=== PATIENT | male | born 1955 ===

== ENCOUNTER 2024-01-27 08:15 | Inpatient (IN) | payer OTHER ==
[2024-01-27] MEDS ORDERED: METFORMIN (11:20)
[2024-01-27] MEDS ORDERED: ATORVASTATIN (11:21)
[2024-02-03] MEDS ORDERED: TRANEXAMIC ACID 100MG/1ML (1000MG) AMPUL IV ONE (20:34)
[2024-02-03] MEDS ORDERED: KETOROLAC TROMETHAMINE 60 MG VIAL IM ONE ×2 (20:48→23:30)
[2024-02-03] MEDS ORDERED: BUPIVACAINE HCL/MPF 0.5% 30ML VIAL ONE (20:48)
[2024-02-03] MEDS ORDERED: CEFAZOLIN SODIUM 1,000 MG VIAL ONE (20:51)
[2024-02-03] MEDS ORDERED: LIDOCAINE HCL 1%/EPINEPHRINE 20ML VIAL IJ ONE ×2 (20:51→23:30)
[2024-02-03] MEDS ORDERED: VANCOMYCIN HCL 1,000 MG VIAL ONE (20:52)
[2024-02-03] MEDS ORDERED: POVIDONE-IODINE 118 ML BOTT TOP ONE ×2 (21:50→23:30)
[2024-02-03] MEDS ORDERED: MORPHINE SULFATE 4 MG/ML CARTRIDGE IV PRN (23:00)
[2024-02-03] MEDS ORDERED: OxyCODONE HCL 5 MG TABLET (ROXICODONE) PO PRN (23:00)
[2024-02-03] MEDS ORDERED: SODIUM CHLORIDE 0.45 % 1,000 ML IV SCH (23:00)
[2024-02-03] MEDS ORDERED: ONDANSETRON HCL 2 MG/ML VIAL IV PRN (23:00)
[2024-02-03] MEDS ORDERED: CEFAZOLIN SODIUM 1,000 MG VIAL IV ONE (23:30)
[2024-02-03] MEDS ORDERED: MORPHINE SULFATE 4 MG/ML VIAL IV ONE (23:30)
[2024-02-03] MEDS ORDERED: BUPIVACAINE HCL/PF 0.25% 30ML VIAL InF ONE (23:30)
[2024-02-03] MEDS ORDERED: VANCOMYCIN HCL 1,000 MG VIAL IR ONE (23:30)
[2024-02-04] MEDS ORDERED: ACETAMINOPHEN 500 MG GEL..CAP PO SCH
[2024-02-04] MEDS ORDERED: CEFAZOLIN SODIUM 1,000 MG VIAL IV SCH (01:00)
[2024-02-04] MEDS ORDERED: GABAPENTIN 300 MG CAPSULE PO SCH (01:00)
[2024-02-04] MEDS ORDERED: CEFAZOLIN SODIUM 1,000 MG VIAL ONE (02:01)
[2024-02-04 07:39] LABS: HEMATOCRIT 36.4 % (39.0-48.0); HEMOGLOBIN 12.2 g/dL (13-16.00); MEAN CELL VOLUME 89.3 fL (80.0-100.00); MEAN CORPUSCULAR HGB CONC 33.6 g/dl (32.0-36.0); RED BLOOD COUNT 4.08 M/uL (4.00-6.00)
[2024-02-04 07:56] LABS: PLATELET COUNT 116 K/uL (150-450)
[2024-02-04] MEDS ORDERED: APIXABAN 2.5 MG TABLET PO SCH (09:00)
[2024-02-04] MEDS ORDERED: SENNOSIDES 1 TAB TABLET PO SCH (09:00)
[2024-02-05 06:19] LABS: HEMATOCRIT 34.6 % (39.0-48.0); HEMOGLOBIN 11.9 g/dL (13-16.00); MEAN CELL VOLUME 89.2 fL (80.0-100.00); MEAN CORPUSCULAR HEMOGLOBIN 30.6 pg (27.00-32.0); MEAN CORPUSCULAR HGB CONC 34.3 g/dl (32.0-36.0); RED BLOOD COUNT 3.88 M/uL (4.00-6.00); RED CELL DISTRIBUTION WIDTH 14.6 % (11.5-14.5)
[2024-02-05 06:22] LABS: PLATELET COUNT 118 K/uL (150-450)
[2024-02-05] MEDS ORDERED: IRON FUM,PS/FOLIC ACID/VITC/B3 1 CAP CAPSULE PO SCH (09:00)
[2024-02-05] MEDS ORDERED: ELIQUIS2.5 MG PO (16:48)
[2024-02-05] MEDS ORDERED: CEFADROXIL500 MG PO (16:48)
[2024-02-05] MEDS ORDERED: PERCOCET 5-3251 EACH PO (16:48)
== END 2024-02-05 19:18 | DRG 470 ==
LOC: EDUNIT# 08:15 → SURH 02-03 08:15 → SURG 02-03 15:14 → O/R 02-03 15:14 → SURH 02-03 15:15 → SURG 02-03 21:31
PROVIDERS: ADMIT Orthopaedic Surgery; ATTEND Orthopaedic Surgery
PROC: 0SR90JA Replacement of Right Hip Joint with Synthetic Substitute, Uncemented, Open Approach (ICD-10-PCS; principal; 2024-02-03 15:15)
DX: M16.11 Unilateral primary osteoarthritis, right hip (principal); M25.751 Osteophyte, right hip; M70.61 Trochanteric bursitis, right hip; E78.5 Hyperlipidemia, unspecified; I25.10 Atherosclerotic heart disease of native coronary artery without angina pectoris; I11.9 Hypertensive heart disease without heart failure

== ENCOUNTER 2024-01-27 08:47 | Outpatient (CLI) | payer OTHER ==
[2024-01-27 09:35] LABS: HEMATOCRIT 40.2 % (39.0-48.0); HEMOGLOBIN 13.7 g/dL (13-16.00); MEAN CELL VOLUME 88.9 fL (80.0-100.00); MEAN CORPUSCULAR HEMOGLOBIN 30.4 pg (27.00-32.0); MEAN CORPUSCULAR HGB CONC 34.1 g/dl (32.0-36.0); RED BLOOD COUNT 4.52 M/uL (4.00-6.00); RED CELL DISTRIBUTION WIDTH 14.9 % (11.5-14.5)
[2024-01-27 09:36] LABS: PLATELET COUNT 129 K/uL (150-450)
[2024-01-27 09:46] LABS: PROTHROMBIN TIME 10.5 SECONDS (9.0-11.5)
[2024-01-27 09:50] LABS: URINE APPEARANCE Clear; URINE BILIRRUBIN Negative (NEGATIVE); URINE BLOOD Negative; URINE COLOR Dark Yellow; URINE GLUCOSE Negative (NEGATIVE); URINE KETONE Trace (NEGATIVE); URINE LEUKOCYTE Negative; URINE NITRATE Negative; URINE PROTEIN Trace (NEGATIVE)
[2024-01-27 09:54] LABS: URINE BACTERIA 8.8 uL (0.0-1933); URINE RBC 5.6 uL (0.0-20.8); URINE WBC 2.4 uL (0.0-23.2)
[2024-01-27 10:01] LABS: ALBUMIN 4.1 gm/dL (3.4-5.0); BILIRUBIN TOTAL 0.42 mg/dL (0.3-1.2); CALCIUM 9.6 mg/dL (8.5-10.1); CHOL HDL RATIO 2.6 (0-5.0); CREATININE SERUM 0.77 mg/dL (0.70-1.30); GFR 101.08; GLOBULINA 3.2 G/DL (2.4-3.5); POTASSIUM 4.61 mEq/L (3.5-5.1); TOTAL PROTEIN 7.3 gm/dL (6.4-8.2)
[2024-01-27] MEDS ORDERED: METFORMIN (11:20)
[2024-01-27] MEDS ORDERED: ATORVASTATIN (11:21)
== END 2024-01-27 09:04 | disposition home or self-care (01) ==
LOC: LAB 08:47
PROVIDERS: ATTEND Orthopaedic Surgery
DX: D64.9 Anemia, unspecified (principal); R10.9 Unspecified abdominal pain; Z79.01 Long term (current) use of anticoagulants; N39.0 Urinary tract infection, site not specified; E78.5 Hyperlipidemia, unspecified; D68.9 Coagulation defect, unspecified; Z03.818 Encounter for observation for suspected exposure to other biological agents ruled out; Z20.828 Contact with and (suspected) exposure to other viral communicable diseases; R05.2 Subacute cough